=== PATIENT | male | born 1990 | race Caucasian/White ===

== ENCOUNTER 2018-05-05 16:54 | Emergency (ER) | payer BC ==
--- NOTE | 2018-05-05 18:49 | UC ---
Skin Complaint HPI - HPI Summary HPI Summary: Noticed a few white 'skin dots' on base of penis. denies discharge, ulceration , pain. he reports trying to 'pop' one of these 'skin dots'. nothing makes it better/worste. - History of Current Complaint Chief Complaint: UCGeneralIllness Time Seen by Provider: 05/05/18 18:43 Stated Complaint: SKIN COMPLAINT(PERSONAL) Hx Obtained From: Patient Onset/Duration: Gradual Onset Pain Intensity: 0 Pain Scale Used: 0-10 Numeric - Allergy/Home Medications Allergies/Adverse Reactions: Allergies Allergy/AdvReac Type Severity Reaction Status Date / Time No Known Allergies Allergy Verified 05/05/18 18:29 Home Medications: Home Medications NK [No Home Medications Reported] 05/05/18 [History Confirmed 05/05/18] PMH/Surg Hx/FS Hx/Imm Hx Previously Healthy: Yes - Surgical History Surgical History: None - Social History Alcohol Use: Occasionally Substance Use Type: None Smoking Status (MU): Never Smoked Tobacco Review of Systems All Other Systems Reviewed And Are Negative: Yes Constitutional: Positive: Negative Skin: Positive: Other - skin 'dots' per pt Genitourinary: Positive: Ulceration/Lesion. Negative: Dysuria, Vaginal/Penile Burning, Vaginal/Penile Itching, Vaginal/Penile Discharge, Vaginal/Penile Pain, Vaginal/Penile Tenderness Physical Exam Triage Information Reviewed: Yes Appearance: Well-Appearing Vital Signs: Initial Vital Signs Temp 98.5 F 05/05/18 18:29 Pulse 88 05/05/18 18:29 Resp 15 05/05/18 18:29 BP 138/56 05/05/18 18:29 Pulse Ox 100 05/05/18 18:29 Vital Signs Reviewed: Yes Male Genital Exam: Positive: Lesions - clear, pearly raised lesions near base of head/penis,few on scrotum. nontender. no ulceration or tenderness. 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 Negative: Erythema, Urethral Discharge Course/Dx - Course Course Of Treatment: Benign sumeet spots on penis. had lengthy discussion w/ pt. declined STI testing. - Differential Diagnoses - Skin Complaint Differential Diagnoses: Scabies, Other - Diagnoses Provider Diagnosis: Benign neoplasm of scrotum Discharge - Sign-Out/Discharge Documenting (check all that apply): Patient Departure All imaging exams completed and their final reports reviewed: No Studies - Discharge Plan Condition: Good Disposition: HOME Referrals: Colton Garcia DO [Primary Care Provider] - Additional Instructions: This is benign. i've printed out information about this condition. - Billing Disposition and Condition Condition: GOOD Disposition: Home - Attestation Statements Provider Attestation: I was available for consult. This patient was seen by the JULIETTE. The patient was not presented to, seen by, or examined by me. EK
== END 2018-05-05 19:08 | disposition home or self-care (01) ==
LOC: UCCORT 16:54
DX: D29.4 Benign neoplasm of scrotum (principal)
CPT/HCPCS: 99201; G0463